=== PATIENT | female | born 1985 | race Caucasian/White ===

== ENCOUNTER 2019-02-06 13:13 | Emergency (ER) | payer OTHER ==
[~2019-02-06] VITALS: Ht 165.1 cm; Wt 91.2 kg
[2019-02-06 13:26] VITALS: BP 113/78
== END 2019-02-06 13:49 | disposition home or self-care (01) ==
LOC: ER 13:16
DX: H66.92 Otitis media, unspecified, left ear (principal)

== ENCOUNTER 2023-07-20 19:15 | Emergency (ER) | payer MEDICAID, OTHER ==
[~2023-07-20] VITALS: Ht 160 cm; Wt 79.8 kg
[2023-07-20 20:31] VITALS: TEMP 100.9
[2023-07-20] MEDS ORDERED: IBUPROFEN 600 MG TABLET PO ONE (21:00)
[2023-07-20] MEDS ORDERED: IBUPROFEN 600 MG TABLET ONE (21:06)
[2023-07-20] MEDS ORDERED: PROM118S5 PO (23:03)
[2023-07-20] MEDS ORDERED: IBUP-1955 PO (23:03)
[2023-07-21 01:15] VITALS: BP 121/74; O2SAT 96
== END 2023-07-21 | disposition home or self-care (01) ==
LOC: ER 19:31
DX: J06.9 Acute upper respiratory infection, unspecified (principal); R05.9 Cough, unspecified; Z20.822 Contact with and (suspected) exposure to COVID-19
CPT/HCPCS: 99284; 71045; 87426; 87804 ×2; C9803

== ENCOUNTER 2023-07-25 16:02 | Emergency (ER) | payer MEDICAID ==
[~2023-07-25] VITALS: Ht 162.6 cm; Wt 79.8 kg
[~2023-07-25 16:02] MED LIST: IBUP-1955 PO; PROM118S5 PO
[2023-07-25 16:12] VITALS: BP 111/68; TEMP 98.2; O2SAT 97
== END 2023-07-25 18:28 | disposition home or self-care (01) ==
LOC: ER 16:05
DX: R04.2 Hemoptysis (principal)
CPT/HCPCS: 71045-TC